=== PATIENT | female | born 1990 | race American Indian/Alaskan Native ===

== ENCOUNTER 2017-03-12 14:28 | Emergency (ER) | payer MEDICAID ==
[2017-03-12 14:42] VITALS: BP 143/49
[2017-03-12 15:53] LABS: Bilirubin,Urine NEG (Negative); Blood,Urine NEG (Negative); Ketones,Urine NEG (Negative); Leukocyte Esterase,Urine NEG (Negative); Mucus,Urine FEW /HPF; Nitrite,Urine NEG (Negative); Protein,Urine <15 mg/dL mg/dL (Negative)
[2017-03-12] MEDS ORDERED: XYLOCAINE 1% MPF 5 mL INFILTRATI ONE (20:40)
[2017-03-12] MEDS ORDERED: ROCEPHIN IM ONE (20:40)
[2017-03-12] MEDS ORDERED: ZITHROMAX PO ONE (20:40)
--- NOTE | 2017-03-12 20:43 | Emergency Department Report ---
ED Female HPI - General Chief complaint: Urogenital-Female Stated complaint: VAGINAL INFECTION Time Seen by Provider: 03/12/17 19:03 Source: patient Mode of arrival: Ambulatory Limitations: No Limitations - History of Present Illness Initial comments: 27-year-old female past medical history history of STDs including chlamydia or gonorrhea Trichomonas and bacterial vaginosis presents with complaint of 2-3 weeks of vaginal discharge and vaginal itching. Patient denies fever chills nausea vomiting. Patient is awake alert and oriented 3 not in acute distress. States she is concerned she has a vaginal infection. Patient also states incidentally that a former sex partner informed her that he has HIV. Patient states that the last time she had sex with this person was over one year ago. Patient denies lymphadenopathy significant weight loss any disseminated rash cough or symptoms other than vaginal irritation and discharge. Patient is requesting primary care referral. MD Complaint: possible STD Onset/Timin -: week(s) Location: labia Quality: burning Consistency: intermittent Improves with: none Worsens with: none Are you Now?: No Last Menstrual Period: 02/10/17 EDC: 11/17/17 - Related Data Previous Rx's Medication Instructions Recorded Last Taken Type Ibuprofen [Motrin] 800 mg PO Q8H PRN #30 tablet 06/27/14 Unknown Rx methOCARBAMOL [Robaxin] 500 mg PO BID #10 tab 06/27/14 Unknown Rx traMADol [Ultram] 50 mg PO Q6HR PRN #14 tablet 06/27/14 Unknown Rx Clindamycin [Clindamycin CAP] 300 mg PO Q6H #28 capsule 09/16/14 Unknown Rx oxyCODONE /ACETAMINOPHEN [Percocet 1 tab PO Q4-6H PRN #20 tablet 09/16/14 Unknown Rx 5/325] predniSONE [Deltasone] 20 mg PO TID #12 tab 09/16/14 Unknown Rx metroNIDAZOLE [Metronidazole] 500 mg PO BID #14 tablet 03/12/17 Unknown Rx Allergies Allergy/AdvReac Type Severity Reaction Status Date / Time kiwi Allergy Vomiting Verified 03/12/17 14:37 ED Review of Systems ROS: Stated complaint: VAGINAL INFECTION Other details as noted in HPI Constitutional: denies: chills, fever Eyes: denies: eye pain, eye discharge, vision change ENT: denies: ear pain, throat pain Respiratory: denies: cough, shortness of breath, wheezing Cardiovascular: denies: chest pain, palpitations Endocrine: no symptoms reported Gastrointestinal: denies: abdominal pain, nausea, diarrhea Genitourinary: as per HPI. denies: urgency, dysuria, discharge Musculoskeletal: denies: back pain, joint swelling, arthralgia Skin: denies: rash, lesions Neurological: denies: headache, weakness, paresthesias Psychiatric: denies: anxiety, depression Hematological/Lymphatic: denies: easy bleeding, easy bruising ED Past Medical Hx - Past Medical History Hx CVA: Yes (torn artery on L side 2013) Hx GERD: Yes Hx Asthma: Yes Additional medical history: PCOS. ACID EROSION - Social History Smoking Status: Current Every Day Smoker Substance Use Type: None - Medications Home Medications: Home Medications Medication Instructions Recorded Confirmed Last Taken Type Ibuprofen [Motrin] 800 mg PO Q8H PRN #30 tablet 06/27/14 Unknown Rx methOCARBAMOL [Robaxin] 500 mg PO BID #10 tab 06/27/14 Unknown Rx traMADol [Ultram] 50 mg PO Q6HR PRN #14 tablet 06/27/14 Unknown Rx Clindamycin [Clindamycin CAP] 300 mg PO Q6H #28 capsule 09/16/14 Unknown Rx oxyCODONE /ACETAMINOPHEN [Percocet 1 tab PO Q4-6H PRN #20 tablet 09/16/14 Unknown Rx 5/325] predniSONE [Deltasone] 20 mg PO TID #12 tab 09/16/14 Unknown Rx metroNIDAZOLE [Metronidazole] 500 mg PO BID #14 tablet 03/12/17 Unknown Rx ED Physical Exam - General Limitations: No Limitations General appearance: alert, in no apparent distress - Head Head exam: Present: atraumatic, normocephalic - Eye Eye exam: Present: normal appearance, PERRL, EOMI - ENT ENT exam: Present: mucous membranes moist - Neck Neck exam: Present: normal inspection - Respiratory Respiratory exam: Present: normal lung sounds bilaterally. Absent: respiratory distress - Cardiovascular Cardiovascular Exam: Present: regular rate, normal rhythm. Absent: systolic murmur, diastolic murmur, rubs, gallop - GI/Abdominal GI/Abdominal exam: Present: soft, normal bowel sounds - External exam: Present: normal external exam Speculum exam: Present: normal speculum exam Bi-manual exam: Present: normal bi-manual exam - Extremities Exam Extremities exam: Present: normal inspection - Back Exam Back exam: Present: normal inspection - Neurological Exam Neurological exam: Present: alert, oriented X3, CN II-XII intact, normal gait - Psychiatric Psychiatric exam: Present: normal affect, normal mood - Skin Skin exam: Present: warm, dry, intact, normal color. Absent: rash ED Course Vital Signs 03/12/17 14:37 Temperature 98.2 F Pulse Rate 80 Respiratory 18 Rate Blood Pressure 143/49 O2 Sat by Pulse 100 Oximetry ED Medical Decision Making - Medical Decision Making A/P: Bacterial vaginosis, vaginal discharge, concern for STD exposure 1-I referred the patient to primary care and [facility] 2-patient treated empirically for Chlamydia gonorrhea and bacterial vaginosis 3-patient states her last sexual contact with this other person was over one year ago I advised her to follow-up with infectious disease and primary care for further STD testing including HIV testing. Patient states she was last tested approximately 4-5 months ago and was negative. I gave patient information for outpatient STD clinic testing [email or web address] clinical signs of PID on pelvic exam Critical care attestation.: If time is entered above; I have spent that time in minutes in the direct care of this critically ill patient, excluding procedure time. ED Disposition Clinical Impression: Bacterial vaginosis Disposition: DC-01 TO HOME OR SELFCARE Is pt being admited?: No Does the pt Need Aspirin: No Condition: Stable Instructions: Bacterial Vaginosis (ED), Sexually Transmitted Diseases (ED), Safe Sex (ED) Additional Instructions: [email or web address] Prescriptions: metroNIDAZOLE [Metronidazole] 500 mg PO BID #14 tablet Referrals: [facility] [Provider Group] - 3-5 Days [facility] [Outside] - 3-5 Days [facility] [Outside] - 3-5 Days THA CASILLAS MD [Staff Physician] - 3-5 Days Forms: STI Treatment and Prevention, Work/School Release Form(ED) Time of Disposition: 20:41
== END 2017-03-12 21:15 | disposition home or self-care (01) ==
LOC: ED 14:28
DX: N76.0 Acute vaginitis (principal); B96.89 Other specified bacterial agents as the cause of diseases classified elsewhere; Z86.73 Personal history of transient ischemic attack (TIA), and cerebral infarction without residual deficits; K21.9 Gastro-esophageal reflux disease without esophagitis; J45.909 Unspecified asthma, uncomplicated; F17.200 Nicotine dependence, unspecified, uncomplicated; Z91.018 Allergy to other foods
CPT/HCPCS: 81001; 81025; 87210; 87591; 96372; 99284; J0696